=== PATIENT | female | born 1995 | race Caucasian/White ===

== ENCOUNTER 2018-02-08 08:23 | Emergency (ER) ==
[~2018-02-08] VITALS: Ht 152.4 cm; Wt 56.8 kg
[2018-02-08] MEDS ORDERED: MULTI VITAMINS1 TAB PO (08:33)
[2018-02-08] MEDS ORDERED: LEXAPRO 10MG10 MG PO (08:33)
[2018-02-08] MEDS ORDERED: RT ADVAIR 228 DISKUS IH (08:34)
[2018-02-08] MEDS ORDERED: PROAIR HFA0.09 MG/AC IH (08:35)
== END 2018-02-08 08:37 | disposition home or self-care (01) ==
LOC: COL.ER 08:23
DX: Z04.41 Encounter for examination and observation following alleged adult rape (principal)

== ENCOUNTER → 2018-02-08 | Outpatient (CLI) | payer SELFPAY ==
[~2018-02-08] MED LIST: LEXAPRO 10MG10 MG PO; MULTI VITAMINS1 TAB PO; PROAIR HFA0.09 MG/AC IH; RT ADVAIR 228 DISKUS IH
== END ==
LOC: LDRO 08:35
DX: T74.21XA Adult sexual abuse, confirmed, initial encounter (principal)

== ENCOUNTER → 2018-02-08 | Outpatient (REF) | LOC: LDRO 08:35 → LDR 08:35 → LDRO 02-10 08:35 | DX: T74.21XA Adult sexual abuse, confirmed, initial encounter (principal) | CPT/HCPCS: OP ==

== ENCOUNTER 2018-05-24 21:02 | Emergency (ER) | payer SELFPAY ==
[~2018-05-24] VITALS: Ht 165.1 cm; Wt 61.4 kg
[2018-05-24 21:06] VITALS: BP 138/72; TEMP 97.7
[2018-05-25] MEDS ORDERED: DESYREL 50MG50 MG PO (00:08)
[2018-05-25] MEDS ORDERED: PREDNISONE10 MG PO (00:09)
[2018-05-25 01:04] VITALS: PULSE 90
== END 2018-05-25 01:05 | disposition home or self-care (01) ==
LOC: COL.ER 21:02
DX: J45.909 Unspecified asthma, uncomplicated (principal); F32.9 Major depressive disorder, single episode, unspecified; Z90.89 Acquired absence of other organs; Z79.51 Long term (current) use of inhaled steroids

== ENCOUNTER 2018-09-04 14:00 | Outpatient (RCR) | payer BC ==
[~2018-09-04 14:00] MED LIST changes: +DESYREL 50MG50 MG PO; +PREDNISONE10 MG PO
== END 2018-11-19 | disposition home or self-care (01) ==
LOC: WSST
DX: J38.3 Other diseases of vocal cords (principal); J45.40 Moderate persistent asthma, uncomplicated